=== PATIENT | male | born 1970 | race Caucasian/White ===

== ENCOUNTER 2018-09-10 15:47 | Emergency (ER) | payer BC ==
[~2018-09-10] VITALS: Ht 175.3 cm; Wt 80.9 kg
[2018-09-10 15:52] VITALS: TEMP 99
[2018-09-10 19:00] VITALS: BP 135/78
[2018-09-10] MEDS ORDERED: NORCO 325 MG-51 TAB PO (19:15)
[2018-09-10 19:34] VITALS: PULSE 64
== END 2018-09-10 19:34 | disposition home or self-care (01) ==
LOC: COL.ER 15:47
DX: S43.004A Unspecified dislocation of right shoulder joint, initial encounter (principal); W19.XXXA Unspecified fall, initial encounter; Y92.838 Other recreation area as the place of occurrence of the external cause
CPT/HCPCS: J1170; J2060; J2704; J3010

== ENCOUNTER → 2022-06-24 | Outpatient (CLI) | payer BC ==
[~2022-06-24] MED LIST: NORCO 325 MG-51 TAB PO
== END ==
LOC: COL.RAD 06:41
DX: K76.0 Fatty (change of) liver, not elsewhere classified (principal); R74.8 Abnormal levels of other serum enzymes